=== PATIENT | male | born 1980 | race Caucasian/White ===

== ENCOUNTER 2024-06-12 20:34 | Emergency (ER) | payer BC, SELFPAY ==
--- NOTE | ~2024-06-12 | XR_ITS ---
EXAM: XR foot LT min 3V DATE: 06/12/2024 21:06 HISTORY: Lawnmower injury 1st toe . COMPARISON: None available. FINDINGS: Normal mineralization. Notch-like defect at the tip of the first distal phalanx with a sma ll adjacent osseous fragment. Additional irregular hyperdensities noted in the soft tissues superfici al to the fracture site. No lytic or blastic lesion. Joint spaces are maintained. No erosion or perio steal change. Irregularity of the first digit toenail. IMPRESSION: Small chip fracture to the anterior aspect of the tip of the distal first phalanx. Adjace nt soft tissue debris. Likely overlying toenail injury. Reviewed, dictated and finalized at location K. IMPRESSION: Small chip fracture to the anterior aspect of the tip of the distal first phalanx. Adjacent soft tissue debris. Likely overlying toenail injury.
[2024-06-12 20:38] VITALS: BP 153/100; PULSE 73; RESP 16; TEMP 36.3; O2SAT 99
--- NOTE | 2024-06-12 20:46 | PC.NURSE ---
pt taken to room 13 and edp lyric at bedside to assist with wound care. Lac to left toe and toe nail affected.
[2024-06-12] MEDS: TETANUS,DIPHTHERIA,AC PERTUSSIS ADULT (0.5 ML) BOOSTRIX IM (21:07)
--- NOTE | 2024-06-12 23:12 | ED.WOUNDLAC ---
HPI - Wound/Laceration General Chief Complaint: Wound/Laceration Stated Complaint: laceration to foot Time Seen by Provider: 06/12/24 20:55 Source: patient Mode of arrival: ambulatory Limitations: no limitations History of Present Illness HPI narrative: This is a 43-year-old male, with no significant past medical history, who presents to the emergency department complaining left great toe injury. The patient states he was mowing his lawn, when he lost his footing resulting in the left foot sliding underneath the garden into the blade. He states he only injured his great toe. He complains of some dull pain and denies injury elsewhere. He has no other complaints at this time. He is not sure when he last had a tetanus vaccination. Related Data Allergies Allergy/AdvReac Type Severity Reaction Status Date / Time No Known Allergies Allergy Verified 06/12/24 20:40 Review of Systems Review of Systems: All systems reviewed & are unremarkable except as noted in HPI and below PMFSH Past Medical History Medical History No significant past medical history Surgical History Surgical History No significant past surgical history Social History Social History Smoking status: Never smoker Alcohol intake: never Substance use: never Exam Narrative: GENERAL: Well-developed, well-nourished, and in no acute distress. HEAD: Normocephalic, atraumatic. EYES: PERRLA and EOMI. NECK: Supple. No midline spine tenderness to palpation, no step-off or crepitus CHEST: Clear to auscultation. No respiratory distress. No wheezes rales or rhonchi HEART: Regular rate and rhythm. No murmur heard. Normal peripheral pulses. ABDOMEN: Soft, nontender, nondistended, normal active bowel sounds. BACK: No midline spine tenderness to palpation, no step-off or crepitus EXTREMITIES: A 3 cm laceration is noted over the medial aspect of the left great toe. The distal 3/4 of the nail of the left great toe is severed, though the nail matrix is intact. There is not appear to be any laceration of the nailbed. Sensation diminished at the medial aspect of the left great toe. Sensation at the lateral aspect is intact. Normal range of motion of all extremities. No edema. SKIN: Otherwise warm, dry, no rash. NEURO: Alert and oriented x3. No focal deficit. Moving all 4 limbs spontaneously PSYCH: Normal mood and affect. Course Course Emergency Course: 23:05 - X-ray demonstrates a distal chip fracture. The patient's wound does not have repairable tissue over the nail bed. There does not appear to be any injury of the nail matrix. Laceration on the medial aspect of the great toe was closed with sutures. The patient was given tetanus vaccination and antibiotics in the emergency department. Will discharge with oral antibiotics and recommendation for primary care and podiatry follow-up. I discussed the findings and recommendations with the patient. Discussed return and emergency precautions including signs/symptoms of wound infection and neurovascular compromise. The patient voiced understanding and agreement with the plan. All questions answered to his satisfaction. Vital Signs Vital signs: Vital Signs Temperature 97.3 F L 06/12/24 20:38 Pulse Rate 73 06/12/24 20:38 Respiratory Rate 16 06/12/24 20:38 Blood Pressure 153/100 H 06/12/24 20:38 Pulse Oximetry 99 06/12/24 20:38 Oxygen Delivery Room Air 06/12/24 20:38 Temperature 97.3 F L 06/12/24 20:38 Pulse Rate 78 06/13/24 00:27 Respiratory Rate 18 06/13/24 00:27 Blood Pressure 145/89 H 06/13/24 00:27 Pulse Oximetry 100 06/13/24 00:27 Oxygen Delivery Room Air 06/12/24 20:38 Procedures Laceration Laceration 1: Date: 06/12/24 Time: 22:50 Site: lower extremity Side (If applicable):
[2024-06-13] MEDS: ceFAZolin SODIUM 1 GM VIAL IM (00:01)
[2024-06-13] MEDS: WATER, STERILE FOR INJECTION 10 ML VIAL XX (00:01)
[2024-06-13 00:27] VITALS: BP 145/89; PULSE 78; RESP 18; O2SAT 100
== END 2024-06-13 00:28 | disposition home or self-care (01) ==
PROVIDERS: Emergency Provider Preventive Medicine Aerospace Medicine
DX: S92.422A Displaced fracture of distal phalanx of left great toe, initial encounter for closed fracture (principal); Z23 Encounter for immunization; W28.XXXA Contact with powered lawn mower, initial encounter
CPT/HCPCS: 12002; 73630; 90471; 90715; 96372; 99283; J0690